=== PATIENT | male | born 1955 | race Caucasian/White ===

== ENCOUNTER 2018-06-27 15:43 | Inpatient (IN) | payer MEDICARE, MEDICAID ==
[2018-06-27 16:48] LABS: ADD MAN DIFF? NO
[2018-06-27 16:50] LABS: WHITE BLOOD COUNT 8.8 10^3/ul (4.8-10.8)
[2018-06-27 16:50] LABS: BASOPHILS % 0.3 % (0.0-2.0); EOSINOPHILS # 0.2 10^3/ul (0.0-0.5); EOSINOPHILS % 2.5 % (0.0-7.0); HEMATOCRIT 26.1 % (42.0-52.0); HEMOGLOBIN 8.4 g/dl (14.0-18.0); LYMPHOCYTES # 2.1 10^3/ul (0.8-2.9); LYMPHOCYTES % 23.5 % (15.0-51.0); MEAN CORPUSCULAR HEMOGLOBIN 30.9 pg (29.0-33.0); MEAN CORPUSCULAR HGB CONC 32.2 g/dl (32.0-37.0); MEAN PLATELET VOLUME 11.8 fl (7.4-10.4); MONOCYTE # 0.7 10^3/ul (0.3-0.9); MONOCYTES % 8.4 % (0.0-11.0); NEUTROPHIL # 5.7 10^3/ul (1.6-7.5); PLATELET COUNT 223 10^3/UL (140-415); RED BLOOD COUNT 2.72 10^6/ul (4.70-6.10); RED CELL DISTRIBUTION WIDTH 12.7 % (11.5-14.5)
[2018-06-27 17:04] LABS: INR 1.13; PROTIME 14.6 Sec (11.9-14.9); PT RATIO 1.1
[2018-06-27 17:05] LABS: PARTIAL THROMBOPLASTIN TIME 33.7 Sec (23.0-35.0)
[2018-06-27 17:08] LABS: ANION GAP 17 (5-13); BLOOD UREA NITROGEN 67 mg/dl (7-20); CALCIUM 8.6 mg/dl (8.4-10.2); CARBON DIOXIDE 21 mmol/L (21-31); CHLORIDE 100 mmol/L (97-110); CREATININE 11.09 mg/dl (0.61-1.24); Estimated GFR 5 mL/min (>60); GLUCOSE 229 mg/dl (70-220); POTASSIUM 5.2 mmol/L (3.5-5.1); SODIUM 138 mmol/L (135-144)
[2018-06-27 17:19] LABS: TROPONIN-I < 0.012 ng/ml (0.000-0.120)
[2018-06-27] MEDS ORDERED: ACETAMINOPHEN 325 MG TAB PO ×2 (18:30→19:00)
[2018-06-27] MEDS ORDERED: ONDANSETRON 4 MG INJ IV ×2 (18:30→19:00)
[2018-06-27] MEDS ORDERED: NACL 0.9% 3 ML SYG IV (19:00)
[2018-06-27] MEDS: INSULIN ASPART [NOVOLOG] 3 ML PEN SC (22:24)
[2018-06-27] MEDS: INSULIN GLARGINE [LANTus] (100 UNITS/ML) SYG SC (22:24)
[2018-06-27 23:23] LABS: HEPATITIS B SURFACE ANTIGEN NEGATIVE (NEGATIVE)
[2018-06-28] MEDS: ACCU-CHEK XX (02:00)
[2018-06-28] MEDS: INSULIN ASPART [NOVOLOG] 3 ML PEN SC ×7 (07:45→20:51)
[2018-06-28] MEDS: SEVELAMER CARBONATE 0.8 GM PKT PO ×3 (08:17→17:31)
[2018-06-28] MEDS: ASPIRIN 81 MG TAB PO (08:17)
[2018-06-28] MEDS: FENOFIBRATE 145 MG TAB PO (08:17)
[2018-06-28] MEDS: FUROSEMIDE 40 MG TAB PO ×2 (08:17→20:36)
[2018-06-28] MEDS ORDERED: NON-FORMULARY/PATIENT OWN MED (Pravastatin Sodium* 40 MG) PO (09:00)
[2018-06-28] MEDS: IOHEXOL 100 ML (10:45)
[2018-06-28] MEDS: SOD CHLORIDE 0.9% 100 ML (10:45)
[2018-06-28] MEDS ORDERED: traZODone 50 MG TAB PO (11:00)
[2018-06-28 12:04] LABS: ADD MAN DIFF? NO
[2018-06-28 12:12] LABS: BASOPHIL # 0.1 10^3/ul (0.0-0.1); BASOPHILS % 0.6 % (0.0-2.0); EOSINOPHILS # 0.3 10^3/ul (0.0-0.5); EOSINOPHILS % 3.5 % (0.0-7.0); HEMOGLOBIN 8.9 g/dl (14.0-18.0); LYMPHOCYTES # 1.7 10^3/ul (0.8-2.9); LYMPHOCYTES % 20.1 % (15.0-51.0); MEAN CORPUSCULAR HEMOGLOBIN 31.4 pg (29.0-33.0); MEAN CORPUSCULAR VOLUME 95.4 fl (82.0-101.0); MEAN PLATELET VOLUME 11.4 fl (7.4-10.4); MONOCYTE # 0.9 10^3/ul (0.3-0.9); MONOCYTES % 10.8 % (0.0-11.0); NEUTROPHIL # 5.6 10^3/ul (1.6-7.5); NEUTROPHILS % 64.8 % (39.0-77.0); PLATELET COUNT 227 10^3/UL (140-415); RED BLOOD COUNT 2.83 10^6/ul (4.70-6.10)
[2018-06-28 12:12] LABS: WHITE BLOOD COUNT 8.6 10^3/ul (4.8-10.8)
[2018-06-28 12:29] LABS: HEMOGLOBIN A1C 8.7 % (0-5.9)
[2018-06-28 12:31] LABS: IRON 64 ug/dl (35-150)
[2018-06-28 12:33] LABS: ALANINE AMINOTRANSFERASE 9 IU/L (13-69); ALBUMIN 4.1 g/dl (3.3-4.9); ALKALINE PHOSPHATASE 179 IU/L (42-121); ANION GAP 12 (5-13); ASPARTATE AMINO TRANSFERASE 21 IU/L (15-46); BLOOD UREA NITROGEN 35 mg/dl (7-20); CALCIUM 9.2 mg/dl (8.4-10.2); CARBON DIOXIDE 29 mmol/L (21-31); CHLORIDE 101 mmol/L (97-110); CHOL/HDL RATIO 4.9 RATIO; CHOLESTEROL 119 mg/dl (100-200); CREATININE 7.33 mg/dl (0.61-1.24); Estimated GFR 8 mL/min (>60); GLUCOSE 138 mg/dl (70-220); HDL CHOLESTEROL 24 mg/dl (30-78); LDL CHOLESTEROL,CALCULATED 21 mg/dl; POTASSIUM 4.5 mmol/L (3.5-5.1); SODIUM 142 mmol/L (135-144); TOTAL PROTEIN 7.5 g/dl (6.1-8.1); TRIGLYCERIDES 368 mg/dl (0-149)
[2018-06-28 12:40] LABS: % IRON SATURATION 18 % SAT (22-52); TOTAL IRON BINDING CAPACITY 356 ug/dl (241-421)
[2018-06-28 13:26] LABS: THYROID STIMULATING HORMONE 0.143 MIU/L (0.465-4.680)
[2018-06-28] MEDS ORDERED: DEXTROSE 50% 50 ML SYRINGE IV ×2 (18:00)
[2018-06-28] MEDS ORDERED: GLUCOSE GEL 15 GRAM TUBE BUCCAL (18:00)
[2018-06-28] MEDS ORDERED: GLUCOSE GEL 15 GRAM TUBE PO ×2 (18:00)
[2018-06-28] MEDS ORDERED: GLUCAGON 1 MG INJ IM (18:00)
[2018-06-28] MEDS: APIXABAN 5 MG TABLET PO (20:50)
[2018-06-28] MEDS: DOCUSATE SODIUM 100 MG CAP PO (20:50)
[2018-06-28] MEDS: ATORVASTATIN 40 MG TAB PO (20:50)
[2018-06-28] MEDS ORDERED: ATORVASTATIN 10 MG TAB PO (21:00)
[2018-06-28] MEDS: INSULIN GLARGINE [LANTus] (100 UNITS/ML) SYG SC (21:44)
[2018-06-28] MEDS: HYDROCODONE/APAP (5/325) TAB PO (23:43)
[2018-06-29] MEDS: ACCU-CHEK XX (02:00)
[2018-06-29] MEDS: FUROSEMIDE 40 MG TAB PO ×2 (05:19→17:09)
[2018-06-29 05:40] LABS: ADD MAN DIFF? NO
[2018-06-29 05:43] LABS: BASOPHIL # 0.1 10^3/ul (0.0-0.1); BASOPHILS % 0.6 % (0.0-2.0); EOSINOPHILS # 0.3 10^3/ul (0.0-0.5); HEMATOCRIT 28.6 % (42.0-52.0); HEMOGLOBIN 9.2 g/dl (14.0-18.0); LYMPHOCYTES # 2.7 10^3/ul (0.8-2.9); LYMPHOCYTES % 35.1 % (15.0-51.0); MEAN CORPUSCULAR HEMOGLOBIN 30.9 pg (29.0-33.0); MEAN CORPUSCULAR HGB CONC 32.2 g/dl (32.0-37.0); MEAN PLATELET VOLUME 11.6 fl (7.4-10.4); MONOCYTES % 12.7 % (0.0-11.0); NEUTROPHIL # 3.7 10^3/ul (1.6-7.5); NEUTROPHILS % 47.3 % (39.0-77.0); PLATELET COUNT 237 10^3/UL (140-415); RED BLOOD COUNT 2.98 10^6/ul (4.70-6.10); RED CELL DISTRIBUTION WIDTH 12.9 % (11.5-14.5)
[2018-06-29 05:43] LABS: WHITE BLOOD COUNT 7.8 10^3/ul (4.8-10.8)
[2018-06-29 06:03] LABS: ANION GAP 14 (5-13); BLOOD UREA NITROGEN 28 mg/dl (7-20); CALCIUM 9.1 mg/dl (8.4-10.2); CARBON DIOXIDE 31 mmol/L (21-31); CHLORIDE 95 mmol/L (97-110); Estimated GFR 10 mL/min (>60); GLUCOSE 149 mg/dl (70-220); SODIUM 140 mmol/L (135-144)
[2018-06-29] MEDS: SEVELAMER CARBONATE 0.8 GM PKT PO ×3 (08:01→17:10)
[2018-06-29] MEDS: INSULIN ASPART [NOVOLOG] 3 ML PEN SC ×6 (08:03→17:15)
[2018-06-29] MEDS ORDERED: FENOFIBRATE 48 MG TAB PO (09:00)
[2018-06-29] MEDS: APIXABAN 5 MG TABLET PO (09:16)
[2018-06-29] MEDS: LORATADINE 10 MG TAB PO (09:16)
[2018-06-29] MEDS: DOCUSATE SODIUM 100 MG CAP PO (09:16)
[2018-06-29] MEDS: ATENOLOL 100 MG TAB PO (09:17)
[2018-06-29] MEDS: AMLODIPINE 5 MG TAB PO (09:17)
[2018-06-29] MEDS: ASPIRIN 81 MG TAB PO (09:17)
[2018-06-29] MEDS: FENOFIBRATE 145 MG TAB PO (09:19)
[2018-06-29 20:08] LABS: OCCULT BLOOD STOOL NEGATIVE (NEGATIVE)
== END 2018-06-29 19:55 | disposition home or self-care (01) | DRG 312 ==
LOC: E/R 15:43 → 6WM 18:27
PROVIDERS: Internal Medicine
PROC: 5A1D70Z Performance of Urinary Filtration, Intermittent, Less than 6 Hours Per Day (ICD-10-PCS; 2018-06-27)
PROC: 5A1D70Z Performance of Urinary Filtration, Intermittent, Less than 6 Hours Per Day (ICD-10-PCS; 2018-06-28)
PROC: 5A1D70Z Performance of Urinary Filtration, Intermittent, Less than 6 Hours Per Day (ICD-10-PCS; principal; 2018-06-29)
DX: I95.1 Orthostatic hypotension (principal); N18.6 End stage renal disease; I12.0 Hypertensive chronic kidney disease with stage 5 chronic kidney disease or end stage renal disease; E11.22 Type 2 diabetes mellitus with diabetic chronic kidney disease; E87.5 Hyperkalemia; D63.1 Anemia in chronic kidney disease; E78.5 Hyperlipidemia, unspecified; I25.10 Atherosclerotic heart disease of native coronary artery without angina pectoris; D63.8 Anemia in other chronic diseases classified elsewhere; M71.20 Synovial cyst of popliteal space [Baker], unspecified knee; Z79.4 Long term (current) use of insulin; Z79.82 Long term (current) use of aspirin; Z99.2 Dependence on renal dialysis; Z90.49 Acquired absence of other specified parts of digestive tract; Z86.718 Personal history of other venous thrombosis and embolism; Z86.73 Personal history of transient ischemic attack (TIA), and cerebral infarction without residual deficits
CPT/HCPCS: 36415; 70450; 71045; 71275; 80048; 80053; 80061; 82270; 82728; 82962; 83036; 83540; 84443; 84484; 85025; 85610; 85730; 87081; 87340; 90935; 93005; 93306; 93880; 93970; 99285-25

== ENCOUNTER 2018-10-25 19:31 | Emergency (ER) | payer MEDICARE, MEDICAID ==
[2018-10-25 20:33] LABS: ADD MAN DIFF? NO
[2018-10-25 20:34] LABS: BASOPHIL # 0.1 10^3/ul (0.0-0.1); BASOPHILS % 0.8 % (0.0-2.0); EOSINOPHILS # 0.3 10^3/ul (0.0-0.5); EOSINOPHILS % 3.8 % (0.0-7.0); HEMATOCRIT 35.3 % (42.0-52.0); HEMOGLOBIN 11.2 g/dl (14.0-18.0); LYMPHOCYTES % 44.7 % (15.0-51.0); MEAN CORPUSCULAR HEMOGLOBIN 31.8 pg (29.0-33.0); MEAN CORPUSCULAR HGB CONC 31.7 g/dl (32.0-37.0); MEAN CORPUSCULAR VOLUME 100.3 fl (82.0-101.0); MEAN PLATELET VOLUME 11.7 fl (7.4-10.4); MONOCYTE # 0.9 10^3/ul (0.3-0.9); MONOCYTES % 10.4 % (0.0-11.0); NEUTROPHIL # 3.6 10^3/ul (1.6-7.5); PLATELET COUNT 200 10^3/UL (140-415); RED BLOOD COUNT 3.52 10^6/ul (4.70-6.10); RED CELL DISTRIBUTION WIDTH 13.4 % (11.5-14.5)
[2018-10-25 20:57] LABS: ANION GAP 14 (5-13); BLOOD UREA NITROGEN 49 mg/dl (7-20); CARBON DIOXIDE 29 mmol/L (21-31); CHLORIDE 100 mmol/L (97-110); CREATININE 8.73 mg/dl (0.61-1.24); Estimated GFR 6 mL/min (>60); GLUCOSE 63 mg/dl (70-220); POTASSIUM 5.8 mmol/L (3.5-5.1); SODIUM 143 mmol/L (135-144)
[2018-10-25] MEDS: ALBUTEROL 0.5% (NEB) 2.5 MG/0.5 ML AMP INH (23:13)
[2018-10-25] MEDS: INSULIN REGULAR, HUMAN 100 UNIT/1 ML 3ML VIAL IVP (23:28)
[2018-10-25] MEDS: DEXTROSE 50% 50 ML SYRINGE IV ×2 (23:30)
[2018-10-26] MEDS: NA POLYST SULFON 15 GM/60 ML BTL PO (00:18)
== END 2018-10-26 01:14 | disposition home or self-care (01) ==
LOC: E/R 10-26 01:14
DX: M79.604 Pain in right leg (principal); I12.0 Hypertensive chronic kidney disease with stage 5 chronic kidney disease or end stage renal disease; N18.6 End stage renal disease; E11.22 Type 2 diabetes mellitus with diabetic chronic kidney disease; E87.5 Hyperkalemia; M79.605 Pain in left leg; Z99.2 Dependence on renal dialysis; Z79.4 Long term (current) use of insulin; Z79.82 Long term (current) use of aspirin
CPT/HCPCS: 80048; 82962; 85025; 93005; 93922; 94644; 96374; 96375; 99285-25